=== PATIENT | female | born 1945 ===

== ENCOUNTER 2017-07-11 09:16 | Observation (INO) | payer MEDICARE, OTHER ==
[2017-07-11 09:18] VITALS: BMI 29.2
[2017-07-11 10:08] LABS: BASO # 0.04 K/mm3 (0.0-2.0); BASO % 0.4 % (0.0-3.0); EOS # 0.3 (0.0-0.7); EOS % 2.9 % (1.5-5.0); GRAN # 6.09 (1.4-6.5); GRAN % 61.1 % (50.0-68.0); HEMATOCRIT 40.3 % (36.0-48.0); LYMPH % 29.6 % (22.0-35.0); MEAN CELL VOLUME 89.6 fl (80.0-105.0); MEAN CORPUSCULAR HEMOGLOBIN 28.7 pg (25.0-35.0); MEAN PLATELET VOLUME 10.9 fl (7.0-11.0); MONO # 0.6 (0.1-0.6); PH,URINE 6.5 (4.7-8.0); RED CELL DISTRIBUTION WIDTH 14.3 % (11.5-14.5); URINE BILIRUBIN NEGATIVE (NEGATIVE); URINE BLOOD TRACE-INTACT (NEGATIVE); URINE GLUCOSE (UA) NEGATIVE (NEGATIVE); URINE KETONE NEGATIVE (NEGATIVE); URINE LEUKOCYTE ESTERASE NEGATIVE Leu/uL (NEGATIVE); URINE PROTEIN NEGATIVE mg/dL (<30 mg/dL); URINE UROBILINOGEN 0.2 E.U./dL (<1 E.U./dL)
[2017-07-11 10:13] LABS: URINE APPEARANCE CLEAR (CLEAR); URINE COLOR YELLOW (YELLOW)
[2017-07-11 10:16] LABS: INR 1.03 (0.93-1.08); PARTIAL THROMBOPLASTIN TIME 32.4 Seconds (25.1-36.5)
[2017-07-11 10:23] LABS: URINE RBC NEGATIVE /hpf (0-2); URINE WBC NEGATIVE /hpf (0-6)
[2017-07-11 10:25] LABS: ALB/GLOB RATIO 1.5 (1.1-1.8); ALKALINE PHOSPHATASE 71 U/L (38-126); ALT/SGPT 28 U/L (7-56); AST/SGOT 22 U/L (14-36); BILIRUBIN,TOTAL 0.5 mg/dL (0.2-1.3); BLOOD UREA NITROGEN 17 mg/dL (7-21); CALCIUM 9.9 mg/dL (8.4-10.5); CARBON DIOXIDE 29 mmol/L (21-33); CHLORIDE 107 mmol/L (98-107); GFR AFRICAN-AMERICAN > 60; GLUCOSE,RANDOM 112 mg/dL (70-110); POTASSIUM 5.1 mmol/L (3.6-5.0); SODIUM 144 mmol/L (132-148); TOTAL PROTEIN 7.3 g/dL (5.8-8.3)
[2017-07-11 10:36] LABS: TROPONIN I < 0.01 ng/mL
--- NOTE | 2017-07-11 10:50 | RAD ---
HISTORY: chest pain COMPARISON: No prior. FINDINGS: LUNGS: No active pulmonary disease. PLEURA: No significant pleural effusion identified, no pneumothorax apparent. CARDIOVASCULAR: Normal. OSSEOUS STRUCTURES: No significant abnormalities. VISUALIZED UPPER ABDOMEN: Normal. OTHER FINDINGS: None. IMPRESSION: No active disease.
--- NOTE | 2017-07-11 11:28 | ED PDOC ---
Arrival/HPI - General Chief Complaint: Chest Pain Time Seen by Provider: 07/11/17 09:37 Historian: Patient - History of Present Illness Narrative History of Present Illness (Text): 07/11/17 11:25 This is a 71yo female with no PMhx who present with complaint of retrosternal chest pain that radiates to her left arm x one week. States the radiation started this morning. Her pain was not relieved/exacerbated by anything. She did not take any medication. she denies SOB, diaphoresis, upper ripping/tearing pain, nausea, vomiting, focal weakness, abdominal pain, orthopnea, GILLESPIE, any other complaint. Past Medical History - Provider Review Nursing Documentation Reviewed: Yes - Cardiac Hx Hypertension: Yes - Psychiatric Hx Substance Use: No Family/Social History - Physician Review Nursing Documentation Reviewed: Yes Family/Social History: Unknown Family HX Smoking Status: Current Some Days Smoker Hx Alcohol Use: Yes Frequency of alcohol use: Socially Hx Substance Use: No Allergies/Home Meds Allergies/Adverse Reactions: Allergies No Known Allergies Allergy (Verified 07/11/17 12:11) Home Medications: Home Meds Medication Instructions Recorded Confirmed No Known Home Med 07/11/17 07/11/17 Review of Systems - Physician Review All systems were reviewed & negative as marked: Yes - Review of Systems Constitutional: Normal Eyes: Normal ENT: Normal Respiratory: Normal Cardiovascular: Chest Pain. absent: Palpitations, Edema, GILLESPIE, Orthopnea Gastrointestinal: Normal Genitourinary Female: Normal Musculoskeletal: Normal Skin: Normal Neurological: Normal Endocrine: Normal Hemo/Lymphatic: Normal Psychiatric: Normal Physical Exam Vital Signs Reviewed: Yes Vital Signs Temp Pulse Resp BP Pulse Ox 07/11/17 13:14 60 14 182/78 H 100 07/11/17 11:27 64 16 175/81 H 99 07/11/17 09:17 98 F 80 16 196/109 H 96 Temperature: Afebrile Blood Pressure: Hypertensive Pulse: Regular Respiratory Rate: Normal Appearance: Positive for: Well-Appearing, Non-Toxic, Comfortable Pain Distress: None Mental Status: Positive for: Alert and Oriented X 3 - Systems Exam Head: Present: Atraumatic, Normocephalic Pupils: Present: PERRL Extroacular Muscles: Present: EOMI Conjunctiva: Present: Normal Mouth: Present: Moist Mucous Membranes Neck: Present: Normal Range of Motion Respiratory/Chest: Present: Clear to Auscultation, Good Air Exchange. No: Respiratory Distress, Accessory Muscle Use Cardiovascular: Present: Regular Rate and Rhythm, Normal S1, S2. No: Murmurs Abdomen: Present: Normal Bowel Sounds. No: Tenderness, Distention, Peritoneal Signs Back: Present: Normal Inspection Upper Extremity: Present: Normal Inspection. No: Cyanosis, Edema Lower Extremity: Present: Normal Inspection. No: Edema Neurological: Present: GCS=15, CN II-XII Intact, Speech Normal Skin: Present: Warm, Dry, Normal Color. No: Rashes Psychiatric: Present: Alert, Oriented x 3, Normal Insight, Normal Concentration Medical Decision Making ED Course and Treatment: 07/11/17 19:35 Pt presented for stated history. Her BP improved in Ed without medication. Lab was unremarkable CXR NAD EKG NSR @77bpm. No ST changes. Secondary to the pt's history and no good outpt follow up, she was placed in Tele obs for further evaluation. Case was DW Dr. Moser and he accepted pt. Result and plan was DW the pt and she agreed. - Lab Interpretations Lab Results: 07/11/17 09:55 07/11/17 09:55 Lab Results 07/11/17 11:30: Free T4 1.19, Thyroxine (T4) 9.3, TSH 3rd Generation 1.47 07/11/17 11:30: ESR 27 H 07/11/17 11:30: Triglycerides 119, Cholesterol 239 H, LDL Cholesterol Direct 160 H, HDL Cholesterol 53 07/11/17 11:30: D-Dimer, Quantitative < 200 07/11/17 09:55: Sodium 144, Potassium 5.1 H, Chloride 107, Carbon Dioxide 29, Anion Gap 13, BUN 17, Creatinine 0.7, Est GFR ( Amer) > 60, Est GFR (Non- Af Amer) > 60, Random Glucose 112 H, Calcium 9.9, Magnesium 2.0, Total Bilirubin 0.5, AST 22, ALT 28, Alkaline Phosphatase 71, Lactate Dehydrogenase 430, Total Creatine Kinase 51, Troponin I < 0.01, NT-Pro-B Natriuret Pep 98.0, Total Protein 7.3, Albumin 4.4, Globulin 3.0, Albumin/Globulin Ratio 1.5 07/11/17 09:55: Urine Color Yellow, Urine Appearance Clear, Urine pH 6.5, Ur Specific [place] <= 1.005, Urine Protein Negative, Urine Glucose (UA) Negative, Urine Ketones Negative, Urine Blood Trace-intact H, Urine Nitrate Negative, Urine Bilirubin Negative, Urine Urobilinogen 0.2, Ur Leukocyte Esterase Negative , Urine RBC Negative, Urine WBC Negative 07/11/17 09:55: PT 11.3, INR 1.03, APTT 32.4 07/11/17 09:55: WBC 10.0, RBC 4.50, Hgb 12.9, Hct 40.3, MCV 89.6, MCH 28.7, MCHC 32.0, RDW 14.3, Plt Count 314, MPV 10.9, Gran % 61.1, Lymph % (Auto) 29.6, [place] % (Auto) 6.0, Eos % (Auto) 2.9, Baso % (Auto) 0.4, Gran # 6.09, Lymph # 3.0 , [place] # 0.6, Eos # 0.3, Baso # 0.04 - RAD Interpretation Radiology Orders: 07/11/17 09:38 CHEST PORTABLE [RAD] Stat - Medication Orders Current Medication Orders: Atorvastatin Calcium (Lipitor) 40 mg PO DIN [facility] Last Admin: 07/11/17 17:23 Dose: 40 mg Enoxaparin Sodium (Lovenox) 40 mg SC DAILY [facility] PRN Reason: Protocol Pantoprazole Sodium (Protonix Inj) 40 mg IVP DAILY [facility] Last Admin: 07/11/17 15:24 Dose: 40 mg IVP Administration Document 07/11/17 15:24 (Rec: 07/11/17 15:24 [id number]) Charges for Administration # of IVP Administrations 1 Pantoprazole Sodium (Protonix Ec Tab) 40 mg PO 0600 [facility] Valsartan (Diovan) 160 mg PO DAILY [facility] Last Admin: 07/11/17 15:24 Dose: 160 mg Discontinued Medications Aspirin (Aspirin) 325 mg PO STAT STA Stop: 07/11/17 09:38 Last Admin: 07/11/17 09:56 Dose: 325 mg Pneumococcal Polyvalent Vaccine (Pneumovax 23 Vaccine) 0.5 ml IM .ONCE ONE Stop: 07/11/17 13:47 Disposition/Present on Arrival - Present on Arrival Any Indicators Present on Arrival: No History of DVT/PE: No History of Uncontrolled Diabetes: No Urinary Catheter: No History of Decub. Ulcer: No History Surgical Site Infection Following: None - Disposition Have Diagnosis and Disposition been Completed?: Yes Diagnosis: Chest pain Disposition: HOSPITALIZED Disposition Time: 11:15 Patient Problems: Current Active Problems Problem Status Onset Chest pain Acute Condition: FAIR
--- NOTE | 2017-07-11 12:19 | CP.PCM.HP ---
History of Present Illness - History of Present Illness History of Present Illness: CC: chest pressure HPI: 71F with no significant PMH presents with chest pressure that started 6 days ago. Patient says today it worsened and she felt SOB, hot, and radiation into her left arm. Patient says before she was able to go for a walk and the pain would ease off. Patient describes it as 5/10 in intensity. She says she occasionally takes aspirin so she took some today to try and help the pain. Patient is also complaining of pain in her teeth describing the sensation that her teeth are falling out even though they arent. She also notes some occasional pain in her left calf that comes and goes. Patient denies headache, dizziness, changes in vision and hearing, Abdominal pain, N&V, D&C, and LE swelling. PMH: Anal fissure, HTN (in the past but says she currently take no medication and it is controlled) PSH: tubal ligation Meds: denies Soc: former smoker (quit 14 years ago), social alcohol drinker (wine), and denies ilicit drug use Fam: denies Present on Admission - Present on Admission Any Indicators Present on Admission: No Review of Systems - Review of Systems All systems: reviewed and no additional remarkable complaints except (as per HPI ) Past Patient History - Past Social History Smoking Status: Current Some Days Smoker - CARDIAC Hx Hypertension: Yes - PSYCHIATRIC Hx Substance Use: No - SURGICAL HISTORY Hx Surgeries: No Meds Allergies/Adverse Reactions: Allergies Allergy/AdvReac Type Severity Reaction Status Date / Time No Known Allergies Allergy Verified 07/11/17 12:11 Physical Exam - Constitutional Appears: Non-toxic, No Acute Distress - Head Exam Head Exam: NORMAL INSPECTION - Eye Exam Eye Exam: EOMI, Normal appearance - ENT Exam ENT Exam: Mucous Membranes Moist - Respiratory Exam Respiratory Exam: Clear to Auscultation Bilateral, NORMAL BREATHING PATTERN. absent: Accessory Muscle Use, Rales, Rhonchi, Wheezes, Respiratory Distress - Cardiovascular Exam Cardiovascular Exam: RRR, +S1, +S2. absent: Bradycardia, Tachycardia, Diastolic murmur, Gallop, Rubs, Systolic Murmur - GI/Abdominal Exam GI & Abdominal Exam: Normal Bowel Sounds, Soft. absent: Distended, Tenderness - Extremities Exam Extremities exam: Positive for: calf tenderness (left sided), pedal pulses present. Negative for: joint swelling, pedal edema - Neurological Exam Neurological exam: Alert, Oriented x3 - Psychiatric Exam Psychiatric exam: Normal Affect, Normal Mood - Skin Skin Exam: Dry, Intact, Normal Color, Warm Results - Vital Signs Recent Vital Signs: Last Vital Signs Temp 98 F 07/11/17 09:17 Pulse 64 07/11/17 11:27 Resp 16 07/11/17 11:27 BP 175/81 H 07/11/17 11:27 Pulse Ox 99 07/11/17 11:27 - Labs Result Diagrams: 07/11/17 09:55 07/11/17 09:55 Labs: Laboratory Results - last 24 hr 07/11/17 07/11/17 07/11/17 09:55 09:55 09:55 WBC 10.0 RBC 4.50 Hgb 12.9 Hct 40.3 MCV 89.6 MCH 28.7 MCHC 32.0 RDW 14.3 Plt Count 314 MPV 10.9 Gran % 61.1 Lymph % (Auto) 29.6 [place] % (Auto) 6.0 Eos % (Auto) 2.9 Baso % (Auto) 0.4 Gran # 6.09 Lymph # 3.0 [place] # 0.6 Eos # 0.3 Baso # 0.04 PT 11.3 INR 1.03 APTT 32.4 Sodium Potassium Chloride Carbon Dioxide Anion Gap BUN Creatinine Est GFR ( Amer) Est GFR (Non-Af Amer) Random Glucose Calcium Magnesium Total Bilirubin AST ALT Alkaline Phosphatase Lactate Dehydrogenase Total Creatine Kinase Troponin I NT-Pro-B Natriuret Pep Total Protein Albumin Globulin Albumin/Globulin Ratio Urine Color Yellow Urine Appearance Clear Urine pH 6.5 Ur Specific [place] <= 1.005 Urine Protein Negative Urine Glucose (UA) Negative Urine Ketones Negative Urine Blood Trace-intact H Urine Nitrate Negative Urine Bilirubin Negative Urine Urobilinogen 0.2 Ur Leukocyte Esterase Negative Urine RBC Negative Urine WBC Negative 07/11/17 09:55 WBC RBC Hgb Hct MCV MCH MCHC RDW Plt Count MPV Gran % Lymph % (Auto) [place] % (Auto) Eos % (Auto) Baso % (Auto) Gran # Lymph # [place] # Eos # Baso # PT INR APTT Sodium 144 Potassium 5.1 H Chloride 107 Carbon Dioxide 29 Anion Gap 13 BUN 17 Creatinine 0.7 Est GFR ( Amer) > 60 Est GFR (Non-Af Amer) > 60 Random Glucose 112 H Calcium 9.9 Magnesium 2.0 Total Bilirubin 0.5 AST 22 ALT 28 Alkaline Phosphatase 71 Lactate Dehydrogenase 430 Total Creatine Kinase 51 Troponin I < 0.01 NT-Pro-B Natriuret Pep 98.0 Total Protein 7.3 Albumin 4.4 Globulin 3.0 Albumin/Globulin Ratio 1.5 Urine Color Urine Appearance Urine pH Ur Specific [place] Urine Protein Urine Glucose (UA) Urine Ketones Urine Blood Urine Nitrate Urine Bilirubin Urine Urobilinogen Ur Leukocyte Esterase Urine RBC Urine WBC Assessment & Plan - Assessment and Plan (Free Text) Assessment: Chest Pain * Admit for observation * Cardiology consult (Dr. Hong) - recs appreciated * Trop negative x1, f/u 14:00 and 18:00 trops * EKG: Possible LVH and nonspecific ST abnormalities, f/u repeat * BNP: 98 * f/u D-dimer * f/u ESR * f/u echo * f/u throid panel * f/u lipid panel * f/u CPK * HHD * Meds: * Lopressor 25mg Q12 * Aspirin 325mg * Lipitor 40mg QD Leg Pain * f/u US of b/l LE Hyperkalemia * Potassium 5.1 on admission * Monitor with CMP in the AM Prophylaxis * Pepcid * Lovenox * SCDs
[2017-07-11 13:45] LABS: CHOLESTEROL 239 mg/dL (130-200)
[2017-07-11] MEDS ORDERED: Pneumococcal 23-Valent Vaccine IM ONE (13:46)
[2017-07-11] MEDS ORDERED: Influenza Vaccine 60 mcg/0.5 mL SYR (4YR UP) IM ONE (13:46)
[2017-07-11 14:01] LABS: FREE T4 1.19 ng/dL (0.78-2.19); T4 9.3 ug/dL (5.5-11.0)
[2017-07-11 14:14] LABS: THYROID STIMULATING HORMONE 1.47 mIU/mL (0.46-4.68)
[2017-07-11 16:52] LABS: TROPONIN I < 0.01 ng/mL
[2017-07-11 20:09] LABS: TROPONIN I < 0.01 ng/mL
--- NOTE | 2017-07-11 20:16 | CARD ---
APPROVED REPORT EXAM: Two-dimensional and M-mode echocardiogram with Doppler and color Doppler. INDICATION Chest Pain 2D DIMENSIONS Left Atrium (2D)3.5 (1.6-4.0cm)IVSd1.0 (0.7-1.1cm) LVDd4.1 (3.9-5.9cm)PWd1.3 (0.7-1.1cm) LVDs2.5 (2.5-4.0cm)FS (%) 37.3 % LVEF (%)67.8 (>50%) M-Mode DIMENSIONS Aortic Root2.50 (2.2-3.7cm)Aortic Cusp Exc.1.70 (1.5-2.0cm) Aortic Valve AoV Peak Phnabcom495.0cm/Kimo Peak GR.11mmHg Mitral Valve MV E Ooucyqcz61.7cm/sMV A Czzawmeb91.8cm/sE/A ratio0.5 TDI E/Lateral E'0.0E/Medial E'0.0 Tricuspid Valve TR Peak [id number]/sRAP [id number] Peak Gr.10mmHg [id number] LEFT VENTRICLE The left ventricle is normal size. There is normal left ventricular wall thickness. The left ventricular function is normal. The left ventricular ejection fraction is within the normal range. There is normal LV segmental wall motion. Transmitral Doppler flow pattern is Grade I-abnormal relaxation pattern. RIGHT VENTRICLE The right ventricle is normal size. There is normal right ventricular wall thickness. The right ventricular systolic function is normal. ATRIA The left atrium size is normal. The right atrium size is normal. AORTIC VALVE The aortic valve is mildly sclerotic. No aortic regurgitation is present. There is no aortic valvular stenosis. MITRAL VALVE The mitral valve is normal in structure. There is no mitral valve regurgitation noted. There is no mitral valve stenosis. TRICUSPID VALVE The tricuspid valve is normal in structure. There is trace tricuspid regurgitation. GREAT VESSELS The aortic root is normal in size. The IVC is normal in size and collapses >50% with inspiration. PERICARDIAL EFFUSION There is a trace loculated anterior pericardial effusion. <Conclusion> The left ventricle is normal size. There is normal left ventricular wall thickness. The left ventricular function is normal. The left ventricular ejection fraction is within the normal range. There is normal LV segmental wall motion. Transmitral Doppler flow pattern is Grade I-abnormal relaxation pattern.
--- NOTE | 2017-07-11 21:31 | CON ---
DATE: 07/11/2017 HISTORY: The patient is a 71-year-old woman with no previous past medical history who presents with 1 week of intermittent epigastric focal discomfort occurring in the morning and occasionally during the day. These symptoms are not related to her activity. The patient has no previous cardiac history, and is on no medications at home. No previous history of diabetes mellitus, hypertension, no hypercholesterolemia. SOCIAL HISTORY: The patient is a former smoker. REVIEW OF SYSTEMS: A 14-point review of systems was reviewed in detail. She is free of cardiac symptomatology. PHYSICAL EXAMINATION: VITAL SIGNS: Blood pressure is 187/78, the heart rate is in the 60s. NECK: Negative JVD. LUNGS: Without rales. HEART: S1, S2. EXTREMITIES: Without edema. EKG is unremarkable. LABORATORY DATA: Troponins are negative x1. Cholesterol is 239, glucose is 112. The hemoglobin is 12.9. IMPRESSION: 1. Atypical chest pain. 2. No evidence for acute coronary syndrome. 3. Her symptoms are more likely gastrointestinal in nature. 4. Hypertension. 5. Hypercholesterolemia. Given these findings, we will change her hypertensive medications to Diovan and discontinue her beta-blockers and discontinue her aspirin. We will give her a trial of Protonix. If her symptoms are negative and her troponins are negative, the patient can be discharged in the morning. She will need to control her blood pressure strictly. We will bring her back electively as an outpatient for stress test. Ghulam Hong MD
--- NOTE | 2017-07-11 22:17 | US ---
HISTORY: Leg pain and swelling. Evaluate for DVT PHYSICIAN(S): Ghulam Cutler MD. TECHNIQUE: Duplex sonography and color-flow Doppler with graded compression were used to evaluate the deep venous systems of both lower extremities. FINDINGS: The visualized deep venous systems of both lower extremities are sonographically normal and compressible. Normal wave forms and augmentation are seen. There is no sonographic evidence for deep venous thrombosis in the visualized segments of both lower extremities. IMPRESSION: No sonographic evidence for deep venous thrombosis in the visualized segments of both lower extremities.
--- NOTE | 2017-07-11 23:37 | CARD ---
APPROVED REPORT EKG Measurement Heart [id number] <Conclusion> Normal sinus rhythm Moderate voltage criteria for LVH, may be normal variant Nonspecific ST abnormality Abnormal ECG
--- NOTE | 2017-07-12 01:20 | HP ---
ADDENDUM This is an addendum to the history and physical examination, which is dictated by and Moe. Please refer to the history and physical examination by the emergency medical service coordinator for entire details and the ER evaluation for further details. The patient was seen and examined in Emergency Room in bed 14. The patient is seen lying in the stretcher. The patient was seen and examined with the emergency medical service coordinator. The patient's vital signs, diagnostic data, lab data and entire diagnostic data was reviewed. IMPRESSION AND PLAN: 1. Retrosternal chest pain and pressure radiating to the left arm with upper abdominal pain, etiology undetermined. 2. Questionable unstable angina. 3. History of hypertension. 4. Shortness of breath, etiology undetermined. 5. History of anal fissure, history of tubal ligation, history of former nicotine dependence, history of social alcohol use. 6. Slightly elevated erythrocyte sedimentation rate, etiology undetermined. 7. Mild non-hemolyzed hyperkalemia. 8. Mild hyperglycemia. 9. Hypercholesteremia with elevated LDL. 10. Microscopic hematuria. 11. Questionable bilateral lower extremity calf tenderness. 12. Questionable gastroesophageal reflux disease. 13. Questionable abdominal etiology for the patient's chest pain. PLAN: At this time, the patient is to be admitted to [facility] telemetry observation. The patient has been ordered serial cardiac enzymes. The patient has been ordered D-dimer. The patient has been ordered repeat chemistry. The patient has been ordered thyroid panel, serial cardiac enzymes ordered, lipid panel ordered, thyroid profile ordered. In addition, the patient is put on telemetry. Serial cardiac enzymes, serial EKG ordered. Cardiology consultation ordered, venous Doppler ordered. The patient has been ordered an echocardiogram. The patient has been ordered venous Doppler of the lower extremity. Echocardiogram has been ordered. The patient has been ordered repeat EKG. The patient has been ordered repeat labs in the morning. H. pylori and diagnostic test ordered. Repeat CBC ordered. Cardiology consultation ordered. GI consultation with Dr. Alcantar ordered. The patient is started on full ACS protocol. The patient is started angiotensin receptor litzy, Diovan 160 daily, Lipitor 40 mg daily Lovenox 40 mg subcu daily, Protonix 40 mg p.o. daily, Tylenol p.r.n. Abdominal ultrasound ordered. Repeat EKG ordered. Heart healthy diet ordered. Out of bed ordered. The patient will be ordered a repeat EKG for the morning. Repeat cardiac enzymes, repeat troponin pending. The patient was explained about the details of her medical condition, need for hospitalization, need for further diagnostic therapeutic intervention, need for Cardiology, Gastroenterology evaluation was explained to the patient at length and need for further diagnostic therapeutic intervention was discussed explained to the patient at length and all questions concerned answered. The patient started on antiplatelet therapy. The patient is started on statins the patient is on DVT and GI prophylaxis... At present, the patient is seen in the Emergency Room. The patient is awaiting for further diagnostic therapeutic interventions.. The patient further management will be dependent upon the patient's clinical condition, hemodynamic status and as per the patient response to therapeutic intervention. For further details of history and physical examination, please refer to the H&P by the emergency medical service coordinator in the ER physician evaluation note. Dictated and electronically signed, not read. Signing off, Lobo Moser MD
[2017-07-12] MEDS ORDERED: Pantoprazole 40 mg EC Tab PO SCH (06:00)
[2017-07-12 07:36] LABS: BASO # 0.03 K/mm3 (0.0-2.0); BASO % 0.4 % (0.0-3.0); EOS # 0.3 (0.0-0.7); GRAN # 5.04 (1.4-6.5); GRAN % 60.6 % (50.0-68.0); HEMATOCRIT 37.1 % (36.0-48.0); LYMPH # 2.4 (1.2-3.4); LYMPH % 28.9 % (22.0-35.0); MEAN CELL VOLUME 89.4 fl (80.0-105.0); MEAN CORPUSCULAR HEMOGLOBIN 28.2 pg (25.0-35.0); MEAN CORPUSCULAR HGB CONC 31.5 g/dl (31.0-37.0); MONO # 0.5 (0.1-0.6); MONO % 6.1 % (1.0-6.0); RED CELL DISTRIBUTION WIDTH 14.4 % (11.5-14.5); WHITE BLOOD COUNT 8.3 10^3/ul (4.5-11.0)
[2017-07-12 08:08] LABS: ALB/GLOB RATIO 1.3 (1.1-1.8); ALKALINE PHOSPHATASE 66 U/L (38-126); ALT/SGPT 30 U/L (7-56); AST/SGOT 23 U/L (14-36); BILIRUBIN,TOTAL 0.6 mg/dL (0.2-1.3); BLOOD UREA NITROGEN 15 mg/dL (7-21); CALCIUM 9.1 mg/dL (8.4-10.5); CARBON DIOXIDE 30 mmol/L (21-33); CHLORIDE 107 mmol/L (98-107); GFR AFRICAN-AMERICAN > 60; GLUCOSE,RANDOM 104 mg/dL (70-110); POTASSIUM 4.3 mmol/L (3.6-5.0); SODIUM 143 mmol/L (132-148); TOTAL PROTEIN 6.8 g/dL (5.8-8.3)
--- NOTE | 2017-07-12 08:42 | US ---
HISTORY: Abdominal pain COMPARISON: None. TECHNIQUE: Sonographic evaluation of the abdomen. FINDINGS: LIVER: Measures 15.1 cm. Normal echogenicity of the liver parenchyma. No mass. No intrahepatic bile duct dilatation. There is a 1.4 x 1.8 x 1.8 cm simple cyst in the left lobe. GALLBLADDER: There are multiple gallstones. No wall thickening or pericholecystic fluid. The sonographic Novak's sign is negative. COMMON BILE DUCT: Measures 3.1 mm. No stones. No dilatation. PANCREAS: Unremarkable as visualized. No mass. No ductal dilatation. RIGHT KIDNEY: Measures 9.2cm. Normal echogenicity. No calculus, mass, or hydronephrosis. There is a 9 x 7 x 8 mm simple cyst in the interpolar region. LEFT KIDNEY: Measures 10.0cm. Normal echogenicity. No calculus, mass, or hydronephrosis. SPLEEN: Normal in size and contour. No mass. AORTA: No aneurysmal dilatation. IVC: Unremarkable. OTHER FINDINGS: None. IMPRESSION: Cholelithiasis. No evidence of acute cholecystitis or biliary dilatation.
[2017-07-12] MEDS ORDERED: Enoxaparin 40 mg Syringe SC SCH (10:00)
[2017-07-12] MEDS ORDERED: Aspirin 325 mg EC Tablets PO SCH (10:00)
--- NOTE | 2017-07-12 10:04 | CON ---
GASTROENTEROLOGY CONSULTATION DATE OF CONSULT: 07/12/2017 REQUESTING PHYSICIAN: Dr. Moser. REASON FOR CONSULTATION/HISTORY OF PRESENT ILLNESS: I have been asked to see this 71-year-old female who is admitted to the hospital with a 1-week history of low substernal chest pain and epigastric pain occurring intermittently. The pains are not related to eating. They are not related to exertion. She denies any chest pain, shortness of breath, palpitations, nausea or vomiting. The patient states that she does occasionally belch if she eats excessively. She denies any weight loss or dysphagia. The patient's cardiac enzymes were negative. The patient was evaluated by Cardiology who feels that this is not coronary ischemia. She did have a ultrasound of the abdomen yesterday which revealed gallstones without any gallbladder wall thickening or pericholecystic fluid. PAST MEDICAL HISTORY: Notable for hypertension. SOCIAL HISTORY: She smokes few cigarettes a day. She consumes alcohol on a social basis. FAMILY HISTORY: Noncontributory. REVIEW OF SYSTEMS: A 14-point review of systems is notable for substernal chest pain and epigastric pain. HOME MEDICATIONS: None. PHYSICAL EXAMINATION: GENERAL: Well-developed female, lying in bed, in no acute distress. VITAL SIGNS: Reveal temperature of 98.1, blood pressure 149/73, heart rate of 55. HEENT: Reveal sclerae to be white. Conjunctivae pink. NECK: Supple. CHEST: Reveal lungs to be clear. HEART: Reveals regular rate and rhythm. ABDOMEN: Soft, nontender. EXTREMITIES: Show no edema. LABORATORY DATA: Reveal white blood cell count 8.3, hemoglobin 11.7. Chemistries reveal normal electrolytes, normal AST, ALT, alk phos, elevated cholesterol at 239, LDL at 160. IMPRESSION: A 71-year-old female with atypical substernal chest pain and epigastric pain. The patient does have gallstones on ultrasound. Her symptoms may be related to biliary colic versus acid reflux versus peptic ulcer disease. RECOMMENDATIONS: 1. I have instructed the patient to embark on a low-fat diet. 2. We will request that the patient had hepatobiliary scan before discharge. 3. I have asked the patient to follow up with me for an elective endoscopy. 4. The patient will probably need elective cholecystectomy in the future. Darian Alcantar MD
--- NOTE | 2017-07-12 10:45 | CARD ---
APPROVED REPORT EKG Measurement Heart [id number] <Conclusion> Sinus bradycardia Minimal voltage criteria for LVH, may be normal variant Borderline ECG
--- NOTE | 2017-07-12 12:17 | PN ---
DATE: 07/12/2017 CARDIOLOGY FOLLOWUP NOTE SUBJECTIVE: There is no shortness of breath and no chest pain. Her abdominal pain is much better. PHYSICAL EXAMINATION: VITAL SIGNS: Blood pressure is 149/73 with the heart rate in the 50s. NECK: Negative JVD. LUNGS: Without rales. HEART: Reveals S1 and S2. EXTREMITIES: Without edema. LABORATORY DATA: Troponins are all negative. Hemoglobin is 11.7. IMPRESSION 1. Atypical chest pain. 2. Hypercholesterolemia. 3. Hypertension. 4. Gallstones. PLAN: Given these findings, the patient can be discharged from a cardiac perspective. We will arrange for an outpatient stress test, given the patient's multiple cardiac risk factors. Ghulam Hong MD
--- NOTE | 2017-07-12 16:17 | NM ---
PROCEDURE: Nuclear Medicine Hepatobiliary Scan HISTORY: r/o cholecystitis COMPARISON: None available. TECHNIQUE: 5.2 mCi of technetium 99m Mebrofenin was administered intravenously. Planar images of the abdomen were obtained at 5 min intervals to 60 mins. Delayed images were also obtained. FINDINGS: LIVER: Timely and homogenous uptake. COMMON BILE DUCT: identified at 5 mins. GALLBLADDER: identified at 5 mins. SMALL BOWEL: Identified at 5-15 mins. IMPRESSION: Normal Hepatobiliary Scan. No nuclear evidence of cystic or common bile duct obstruction.
--- NOTE | 2017-07-12 16:22 | CP.PCM.DIS ---
Provider - Provider Date of Admission: 07/11/17 11:33 Attending physician: Lobo Moser MD Primary care physician: NO PRIMARY CARE PROVIDER Consults: Dr. Hal Alcantar Time Spent in preparation of Discharge (in minutes): 35 Diagnosis - Discharge Diagnosis (1) Chest pain Status: Acute Hospital Course - Lab Results Lab Results: Most Recent Lab Values WBC 8.3 10^3/ul (4.5-11.0) 07/12/17 06:45 RBC 4.15 10^6/uL (3.5-6.1) 07/12/17 06:45 Hgb 11.7 g/dL (12.0-16.0) L 07/12/17 06:45 Hct 37.1 % (36.0-48.0) 07/12/17 06:45 MCV 89.4 fl (80.0-105.0) 07/12/17 06:45 MCH 28.2 pg (25.0-35.0) 07/12/17 06:45 MCHC 31.5 g/dl (31.0-37.0) 07/12/17 06:45 RDW 14.4 % (11.5-14.5) 07/12/17 06:45 Plt Count 305 10^3/uL (120.0-450.0) 07/12/17 06:45 MPV 11.0 fl (7.0-11.0) 07/12/17 06:45 Gran % 60.6 % (50.0-68.0) 07/12/17 06:45 Lymph % (Auto) 28.9 % (22.0-35.0) 07/12/17 06:45 [place] % (Auto) 6.1 % (1.0-6.0) H 07/12/17 06:45 Eos % (Auto) 4.0 % (1.5-5.0) 07/12/17 06:45 Baso % (Auto) 0.4 % (0.0-3.0) 07/12/17 06:45 Gran # 5.04 (1.4-6.5) 07/12/17 06:45 Lymph # 2.4 (1.2-3.4) 07/12/17 06:45 [place] # 0.5 (0.1-0.6) 07/12/17 06:45 Eos # 0.3 (0.0-0.7) 07/12/17 06:45 Baso # 0.03 K/mm3 (0.0-2.0) 07/12/17 06:45 ESR 27 mm/hr (0.0-20.0) H 07/11/17 11:30 PT 11.3 SECONDS (9.4-12.5) 07/11/17 09:55 INR 1.03 (0.93-1.08) 07/11/17 09:55 APTT 32.4 Seconds (25.1-36.5) 07/11/17 09:55 D-Dimer, Quantitative < 200 ng/mL (0-243) 07/11/17 11:30 Sodium 143 mmol/L (132-148) 07/12/17 06:45 Potassium 4.3 mmol/L (3.6-5.0) 07/12/17 06:45 Chloride 107 mmol/L (98-107) 07/12/17 06:45 Carbon Dioxide 30 mmol/L (21-33) 07/12/17 06:45 Anion Gap 11 (10-20) 07/12/17 06:45 BUN 15 mg/dL (7-21) 07/12/17 06:45 Creatinine 0.7 mg/dl (0.7-1.2) 07/12/17 06:45 Est GFR ( Amer) > 60 07/12/17 06:45 Est GFR (Non-Af Amer) > 60 07/12/17 06:45 Random Glucose 104 mg/dL (70-110) 07/12/17 06:45 Calcium 9.1 mg/dL (8.4-10.5) 07/12/17 06:45 Magnesium 2.0 mg/dL (1.7-2.2) 07/11/17 09:55 Total Bilirubin 0.6 mg/dL (0.2-1.3) 07/12/17 06:45 AST 23 U/L (14-36) 07/12/17 06:45 ALT 30 U/L (7-56) 07/12/17 06:45 Alkaline Phosphatase 66 U/L (38-126) 07/12/17 06:45 Lactate Dehydrogenase 365 U/L (333-699) 07/11/17 19:44 Total Creatine Kinase 52 U/L (35-230) 07/11/17 19:44 Troponin I < 0.01 ng/mL 07/11/17 19:44 NT-Pro-B Natriuret Pep 98.0 pg/mL (0-450) 07/11/17 09:55 Total Protein 6.8 g/dL (5.8-8.3) 07/12/17 06:45 Albumin 3.8 g/dL (3.0-4.8) 07/12/17 06:45 Globulin 3.0 gm/dL 07/12/17 06:45 Albumin/Globulin Ratio 1.3 (1.1-1.8) 07/12/17 06:45 Triglycerides 119 mg/dL (35-160) 07/11/17 11:30 Cholesterol 239 mg/dL (130-200) H 07/11/17 11:30 LDL Cholesterol Direct 160 mg/dL (0-129) H 07/11/17 11:30 HDL Cholesterol 53 mg/dL (29-60) 07/11/17 11:30 25-OH Vitamin D Total < 12.8 NG/ML (30.0-100.0) L 07/12/17 06:45 Free T4 1.19 ng/dL (0.78-2.19) 07/11/17 11:30 Thyroxine (T4) 9.3 ug/dL (5.5-11.0) 07/11/17 11:30 TSH 3rd Generation 1.47 mIU/mL (0.46-4.68) 07/11/17 11:30 Urine Color Yellow (YELLOW) 07/11/17 09:55 Urine Appearance Clear (CLEAR) 07/11/17 09:55 Urine pH 6.5 (4.7-8.0) 07/11/17 09:55 Ur Specific [place] <= 1.005 (1.005-1.035) 07/11/17 09:55 Urine Protein Negative mg/dL (<30 mg/dL) 07/11/17 09:55 Urine Glucose (UA) Negative mg/dL (NEGATIVE) 07/11/17 09:55 Urine Ketones Negative mg/dL (NEGATIVE) 07/11/17 09:55 Urine Blood Trace-intact (NEGATIVE) H 07/11/17 09:55 Urine Nitrate Negative (NEGATIVE) 07/11/17 09:55 Urine Bilirubin Negative (NEGATIVE) 07/11/17 09:55 Urine Urobilinogen 0.2 E.U./dL (<1 E.U./dL) 07/11/17 09:55 Ur Leukocyte Esterase Negative [place]/uL (NEGATIVE) 07/11/17 09:55 Urine RBC Negative /hpf (0-2) 07/11/17 09:55 Urine WBC Negative /hpf (0-6) 07/11/17 09:55 - Hospital Course Hospital Course: Upon Admission: 71F with no significant PMH presents with chest pressure that started 6 days ago. Patient says today it worsened and she felt SOB, hot, and radiation into her left arm. Patient says before she was able to go for a walk and the pain would ease off. Patient describes it as 5/10 in intensity. She says she occasionally takes aspirin so she took some today to try and help the pain. Patient is also complaining of pain in her teeth describing the sensation that her teeth are falling out even though they arent. She also notes some occasional pain in her left calf that comes and goes. Patient denies headache, dizziness, changes in vision and hearing, Abdominal pain, N&V, D&C, and LE swelling. Hospital Course: Patient was admitted for chest pain to rule out ACS. Cardiology consulted (Dr. Hong). EKG showed LVH which was also seen on echo. EF was WNL. Trop negative x3. BNP: 98. D-dimer, ESR, throid panel, lipid panel were ordered and can be followed up as outpatient with Dr. Moser. Patient started on Lopressor 25mg Q12 , Aspirin 325mg, and Lipitor 40mg QD. Dr. Hong suggested pain could be of GI origin. abdominal US showed cholelithiasis without signs of cholecystitis. HIDA scan was ordered and found to be negative. Leg Pain was adressed with US of b/l LE which was found to be negative. Upon discharge: Patient clear for discharge per Dr. Moser. Patient was discharged with the following instructions: SCHEDULE OUTPATIENT STRESS TEST WITH SCHEDULE OUTPATIENT EGD AND COLONOSCOPY WITH FOLLOW UP WITHIN 1 WEEK DISCHARGE MEDS PER NEW SCRIPTS AND AMBULATORY ORDERS. Please note that this is a summary of events. For more information please see complete medical record. Discharge Exam - Head Exam Head Exam: NORMAL INSPECTION - Eye Exam Eye Exam: EOMI - ENT Exam ENT Exam: Mucous Membranes Moist - Respiratory Exam Respiratory Exam: UNREMARKABLE - Cardiovascular Exam Cardiovascular Exam: RRR, +S1, +S2 - GI/Abdominal Exam GI & Abdominal Exam: Normal Bowel Sounds, Soft, Tenderness (epigastric ). absent: Distended, Guarding - Extremities Exam Extremities exam: normal inspection - Neurological Exam Neurological exam: Alert, Oriented x3 - Psychiatric Exam Psychiatric exam: Normal Affect, Normal Mood - Skin Skin Exam: Dry, Intact, Normal Color, Warm Discharge Plan - Discharge Medications Prescriptions: Atorvastatin [Lipitor] 40 mg PO DIN #30 tab Pantoprazole [Protonix EC Tab] 40 mg PO 0600 #30 ect Valsartan [Diovan] 160 mg PO DAILY #30 tab - Follow Up Plan Condition: GOOD Disposition: HOME/ ROUTINE Additional Instructions: MAY DISCHARGE HOME AFTER CLEARED BY CARDIOLOGY AND GASTROENTEROLOGY AND AFTER ULTRASOUND ABDOMEN DONE SCHEDULE OUTPATIENT STRESS TEST WITH SCHEDULE OUTPATIENT EGD AND COLONOSCOPY WITH FOLLOW UP WITHIN 1 WEEK DISCHARGE MEDS PER NEW SCRIPTS AND AMBULATORY ORDERS. Referrals: Darian Alcantar MD [Staff Provider] - 1 Week (MAY DISCHARGE HOME AFTER CLEARED BY CARDIOLOGY AND GASTROENTEROLOGY AND AFTER ULTRASOUND ABDOMEN DONE SCHEDULE OUTPATIENT STRESS TEST WITH SCHEDULE OUTPATIENT EGD AND COLONOSCOPY WITH FOLLOW UP WITHIN 1 WEEK DISCHARGE MEDS PER NEW SCRIPTS AND AMBULATORY ORDERS.) Lobo oMser MD [Staff Provider] - 1 Week (MAY DISCHARGE HOME AFTER CLEARED BY CARDIOLOGY AND GASTROENTEROLOGY AND AFTER ULTRASOUND ABDOMEN DONE SCHEDULE OUTPATIENT STRESS TEST WITH SCHEDULE OUTPATIENT EGD AND COLONOSCOPY WITH FOLLOW UP WITHIN 1 WEEK DISCHARGE MEDS PER NEW SCRIPTS AND AMBULATORY ORDERS.) Ghulam Hong MD [Staff Provider] - 1 Week (MAY DISCHARGE HOME AFTER CLEARED BY CARDIOLOGY AND GASTROENTEROLOGY AND AFTER ULTRASOUND ABDOMEN DONE SCHEDULE OUTPATIENT STRESS TEST WITH SCHEDULE OUTPATIENT EGD AND COLONOSCOPY WITH FOLLOW UP WITHIN 1 WEEK DISCHARGE MEDS PER NEW SCRIPTS AND AMBULATORY ORDERS.)
[2017-07-12 18:10] VITALS: BP 155/80; PULSE 58; RESP 18; TEMP 98.5; O2SAT 97
== END 2017-07-12 18:11 | disposition home or self-care (01) ==
LOC: ED 09:16 → ERH 11:33 → 3RSO 13:19
PROVIDERS: ADMIT Internal Medicine; ATTEND Internal Medicine
DX: R07.2 Precordial pain (principal); I10 Essential (primary) hypertension; K80.20 Calculus of gallbladder without cholecystitis without obstruction; E87.5 Hyperkalemia; E78.00 Pure hypercholesterolemia, unspecified; R31.29 Other microscopic hematuria; F17.210 Nicotine dependence, cigarettes, uncomplicated
CPT/HCPCS: 36415; 71010; 76700; 78227; 80053; 80061; 81001; 82306; 82550; 83615; 83735; 83880; 84439; 84443; 84484; 85025; 85378; 85610; 85651; 85730; 93005; 93306; 93970; 99285; A9537; C9113; G0378

== ENCOUNTER 2017-07-26 06:22 | Day surgery (SDC) | payer MEDICARE, OTHER ==
[2017-07-18 16:19] VITALS: BMI 30.7
[2017-07-26] MEDS ORDERED: Propofol 10 mg/ml Inj (20 ML) ONE (09:01)
[2017-07-26] MEDS ORDERED: Sodium Chloride 0.9% 1,000 ML IV SCH (09:30)
[2017-07-26 09:54] VITALS: O2SAT 98
[2017-07-26 10:13] VITALS: BP 138/58; PULSE 56; RESP 18; TEMP 98
== END 2017-07-26 10:35 | disposition home or self-care (01) ==
LOC: ENDO 06:22
PROVIDERS: ATTEND Specialist
DX: K44.9 Diaphragmatic hernia without obstruction or gangrene (principal); K29.50 Unspecified chronic gastritis without bleeding; K31.9 Disease of stomach and duodenum, unspecified; R07.89 Other chest pain
CPT/HCPCS: 43239; 88305; 88342; J2704; J7040 ×2

== ENCOUNTER 2017-08-09 07:13 | Day surgery (SDC) | payer MEDICARE, OTHER ==
[2017-08-02 08:18] VITALS: BMI 30.2
[2017-08-09] MEDS ORDERED: Iohexol 240 (50 ml) ONE (09:34)
[2017-08-09] MEDS ORDERED: cefTRIAXone (Rocephin) 1 gm Inj ONE (09:34)
[2017-08-09] MEDS ORDERED: Midazolam 2 MG/2 ML VIAL ONE (10:16)
[2017-08-09] MEDS ORDERED: Propofol 10 mg/ml Inj (20 ML) ONE (10:16)
[2017-08-09] MEDS ORDERED: Neostigmine Methylsulfate 3mg/3ml Syringe IV ONE (10:48)
[2017-08-09] MEDS: Bupivacaine 0.5% Inj(30mL) ONE ×2 (11:18→11:24)
[2017-08-09] MEDS ORDERED: Oxycodone/Acetaminophen 5/325 mg Tab PO ONE (11:53)
[2017-08-09] MEDS ORDERED: HYDROmorphone 0.5 mg/0.5 ml ISec IVP PRN (11:55)
--- NOTE | 2017-08-09 11:58 | PCM.SURG1 ---
Surgeon's Initial Post Op Note - Surgeon's Notes Surgeon: Dr. Capone Manager Of Data: Dr. Hawkins PGY1 Type of Anesthesia: General Endo Pre-Operative Diagnosis: Symptomatic Cholelithiasis Operative Findings: see op note Post-Operative Diagnosis: as above Operation Performed: laparosopic cholecystectomy Specimen/Specimens Removed: gallbladder Estimated Blood Loss: EBL {In ML}: 5 Drains Used: No Drains Post-Op Condition: Good Date of Surgery/Procedure: 08/09/17 Time of Surgery/Procedure: 11:57
[2017-08-09] MEDS ORDERED: Lactated Ringer's 1,000 ML IV SCH (12:00)
[2017-08-09] MEDS ORDERED: HYDROmorphone 0.5 mg/0.5 ml ISec ONE (12:26)
[2017-08-09 12:54] VITALS: TEMP 97.8
[2017-08-09 13:20] VITALS: RESP 18
[2017-08-09 14:08] VITALS: BP 129/64; PULSE 51; O2SAT 95
--- NOTE | 2017-08-20 22:11 | OP ---
PROCEDURE DATE: 08/09/2017 PREOPERATIVE DIAGNOSIS: Acute and chronic cholecystitis. POSTOPERATIVE DIAGNOSIS: Acute and chronic cholecystitis. OPERATION PERFORMED: Laparoscopic cholecystectomy. SURGEON: Keshav Capone MD [employer] DETENTION OFFICER: Dr. Hawkins. DESCRIPTION OF PROCEDURE: In the operating room, the patient was identified by name, name of the procedure, laterality and my jenn. The abdomen having been prepped and draped, a supraumbilical incision was made through the skin and subcutaneous tissues through the draped and prepped field. This was after the successful time-out. The Veress needle was placed followed by the Visiport. The laparoscopic 5 and two lateral 5s were placed. The gallbladder was grabbed, pulled up very nicely. The peritoneum was swept down exposing quickly the cystic duct and artery, these were cleaned circumferentially to give a satisfactory view of safety. The cystic duct was doubly clipped as was the artery and the gallbladder taken off using the Harmonic scalpel, placed in a bag and removed without issue. The abdomen was cleared and drained. There was nothing untoward to any of the structures. The incision was closed with a visually placed PDS. The incision was injected with Marcaine, closed with Vicryl and subcuticular PDS, followed by Dermabond. The patient was taken to the recovery room in good condition after the sponge and needle count was declared correct. Keshav Capone MD [facility]
== END 2017-08-09 15:50 | disposition home or self-care (01) ==
LOC: SDS 07:13
PROVIDERS: ATTEND Surgery
DX: K80.10 Calculus of gallbladder with chronic cholecystitis without obstruction (principal); I10 Essential (primary) hypertension; E78.5 Hyperlipidemia, unspecified; K29.70 Gastritis, unspecified, without bleeding
CPT/HCPCS: 47562; 88304; J0131; J0360; J0690; J1100; J1170; J2250; J2405; J2704; J2710; J2765; J3010; J7120 ×2; Q9966

== ENCOUNTER 2017-11-08 06:44 | Day surgery (SDC) | payer MEDICARE, OTHER ==
[2017-10-31 08:57] VITALS: BMI 29.8
[2017-11-08] MEDS ORDERED: Lidocaine 1% Inj (20ml) ONE (08:32)
[2017-11-08] MEDS ORDERED: Propofol 10 mg/ml Inj (20 ML) ONE ×3 (08:32→08:55)
[2017-11-08] MEDS ORDERED: Simethicone 40 mg/0.6 ml Liquid (30 ml) ONE (08:53)
[2017-11-08] MEDS ORDERED: Sodium Chloride 0.9% 1,000 ML IV SCH (09:30)
[2017-11-08 12:26] VITALS: BP 146/72; PULSE 60; RESP 18; TEMP 97.6; O2SAT 99
== END 2017-11-08 10:32 | disposition home or self-care (01) ==
LOC: ENDO 06:44
PROVIDERS: ATTEND Specialist
DX: Z12.11 Encounter for screening for malignant neoplasm of colon (principal); D12.2 Benign neoplasm of ascending colon; K57.30 Diverticulosis of large intestine without perforation or abscess without bleeding; K64.8 Other hemorrhoids
CPT/HCPCS: 45380; 88305; J2704; J7040 ×2